=== PATIENT | male | born 1950 | race Caucasian/White ===

== ENCOUNTER 2024-03-16 06:36 | Day surgery (SDC) | payer MEDICARE, BC, SELFPAY | END 2024-03-16 15:09 | disposition home or self-care (01) | LOC: GI 06:36 | PROVIDERS: ATTENDING PHYSICIAN Specialist | DX: Z12.11 Encounter for screening for malignant neoplasm of colon (principal); K57.30 Diverticulosis of large intestine without perforation or abscess without bleeding | CPT/HCPCS: G0121 ==